=== PATIENT | male | born 1950 | race Caucasian/White ===

== ENCOUNTER 2019-06-19 07:33 | Inpatient (IN) | payer MEDICARE ==
[~2019-06-19] VITALS: Ht 185.4 cm; Wt 110.5 kg
[~2019-06-19 07:33] MED LIST: ADAL40PE SQ; AEC81 PO; CALC-190 PO; FISH1CAP49 PO; FOLI1TAB15 PO; LOSA100T58 PO; METH2.5T6 PO; METO25TA6 PO; PRAV80TA21 PO; RIVA20TA PO
[2019-06-19] MEDS ORDERED: SODIUM CHLORIDE 0.9% 500ML 500 ML IV ONE ×4 (07:55→20:12)
[2019-06-19] MEDS ORDERED: FAMOTIDINE/PF 20 MG/2 ML VIAL IV ONE (07:55)
[2019-06-19] MEDS ORDERED: ONDANSETRON HCL 4 MG/2 ML VIAL ONE ×2 (07:55→18:34)
[2019-06-19 08:04] LABS: BASOPHILS % (AUTO) 0.3 % (0.0-5.0); EOSINOPHILS % (AUTO) 0.1 % (0.0-8.0); HEMATOCRIT 28.7 % (36-48); LYMPHOCYTES % (AUTO) 8.3 % (21.0-51.0); MEAN CORPUSCULAR HEMOGLOBIN 35.3 pg (27.0-33.0); MEAN CORPUSCULAR HGB CONC 33.4 g/dL (32.0-36.0); MEAN CORPUSCULAR VOLUME 105.5 fL (79-99); MONOCYTES % (AUTO) 11.6 % (3.0-13.0); PLATELET COUNT (AUTO) 182 K/uL (130-400); RED BLOOD CELL COUNT(AUTO) 2.72 MIL/uL (4.00-5.50); WHITE BLOOD COUNT (AUTO) 15.5 K/uL (4.8-10.8)
[2019-06-19 08:12] LABS: POTASSIUM 5.2 mmol/L (3.5-5.1)
[2019-06-19 08:23] LABS: PARTIAL THROMBOPLASTIN TIME 27.3 SEC (26.3-35.5)
[2019-06-19 08:31] LABS: INR 1.49 (0.85-1.15); PROTHROMBIN TIME 15.4 SEC (9.6-11.6)
[2019-06-19 08:37] LABS: ALBUMIN 2.6 g/dL (3.5-5.0); BILIRUBIN,TOTAL 1.3 mg/dL (0.2-1.0); TOTAL PROTEIN, SERUM 7.1 g/dL (6.0-8.3)
[2019-06-19 09:44] LABS: APPEARANCE,URINE Clear (CLEAR); BILIRUBIN,URINE Negative (NEGATIVE); COLOR,URINE Yellow (YELLOW); GLUCOSE, URINE (UA) TRACE mg/dL (NEGATIVE); KETONES,URINE Trace mg/dL (NEGATIVE); LEUKOCYTE ESTERASE ,URINE Negative (NEGATIVE); NITRATE,URINE Negative (NEGATIVE); OCCULT BLOOD,URINE Negative (NEGATIVE); PROTEIN,URINE Negative (NEGATIVE)
[2019-06-19 10:00] LABS: BACTERIA,URINE None Seen /HPF (None Seen); RBC,URINE 0-1 /HPF (0-1); SQUAMOUS EPITHELIAL CELL,UR Rare /HPF (0-2); WBC,URINE 0-1 /HPF (0-1)
[2019-06-19] MEDS: SODIUM CHLORIDE 0.9% 1000ML 1,000 ML IV SCH ×2 (10:39→18:35)
[2019-06-19] MEDS ORDERED: LACTULOSE 20 GM/30 ML UDCUP PO PRN (10:45)
[2019-06-19] MEDS ORDERED: ONDANSETRON HCL 4 MG/2 ML VIAL IV PRN (10:45)
[2019-06-19] MEDS ORDERED: GUAIFENESIN-DM 200/20 MG 10 ML PO PRN (10:45)
[2019-06-19] MEDS ORDERED: HYDRALAZINE HCL 20 MG/ML VIAL IV PRN (10:45)
[2019-06-19] MEDS ORDERED: ACETAMINOPHEN 325 MG TAB PO PRN (10:45)
[2019-06-19] MEDS ORDERED: NITROGLYCERIN 0.4 MG SL TAB SL PRN (10:45)
[2019-06-19 11:41] LABS: AMPHET/METH SCREEN,URINE NEGATIVE (NEGATIVE); BARBITURATE SCREEN, URINE NEGATIVE (NEGATIVE); BENZODIAZEPINES SCREEN,URINE NEGATIVE (NEGATIVE); CANNABINOID SCREEN,URINE NEGATIVE (NEGATIVE); COCAINE SCREEN,URINE NEGATIVE (NEGATIVE); OPIATE SCREEN,URINE NEGATIVE (NEGATIVE); PHENCYCLIDINE SCREEN,URINE NEGATIVE (NEGATIVE)
[2019-06-19 16:12] LABS: MEAN CORPUSCULAR HGB CONC 33.5 g/dL (32.0-36.0); MEAN CORPUSCULAR VOLUME 104.6 fL (79-99); RED BLOOD CELL COUNT(AUTO) 1.97 MIL/uL (4.50-6.20)
[2019-06-19 16:19] LABS: PLATELET COUNT (AUTO) 149 K/uL (130-400); RED CELL DISTRIBUTION WIDTH 14.1 % (11.0-15.5); WHITE BLOOD COUNT (AUTO) 10.6 K/uL (4.8-10.8)
[2019-06-19 16:22] LABS: HEMATOCRIT 20.6 % (42-54)
[2019-06-19 16:47] LABS: CREATININE 1.1 mg/dL (0.5-1.5); POTASSIUM 4.9 mmol/L (3.5-5.1)
[2019-06-19] MEDS ORDERED: SODIUM CHLORIDE 0.9% 1000ML 1,000 ML IV ONE (16:51)
[2019-06-19] MEDS ORDERED: PANTOPRAZOLE 40 MG/VIAL IV SCH (17:15)
[2019-06-19] MEDS ORDERED: OCTREOTIDE ACETATE 1,250 MCG in SODIUM CHLORIDE 0.9% 250 ML IV SCH (17:15)
[2019-06-19] MEDS ORDERED: ONDANSETRON HCL 4 MG/2 ML VIAL IVP PRN (17:15)
[2019-06-19] MEDS ORDERED: OCTREOTIDE ACETATE 100 MCG/ML AMP IV SCH (17:15)
[2019-06-19] MEDS ORDERED: PANTOPRAZOLE SODIUM 80 MG in SODIUM CHLORIDE 0.9% 100 ML IV SCH (17:15)
[2019-06-19] MEDS ORDERED: ERYTHROMYCIN LACTOBIONATE 250 MG in SODIUM CHLORIDE 0.9% 100 ML IV ONE (17:15)
[2019-06-19] MEDS ORDERED: HUMAN PROTHROMBIN COMPLX(PCC) 500 UNIT KIT IV ONE (17:20)
[2019-06-19] MEDS ORDERED: HUMAN PROTHROMBIN COMPLX(PCC) 500 UNIT KIT IV SCH ×2 (17:30)
[2019-06-19] MEDS ORDERED: SODIUM CHLORIDE 0.9% 100 ML IV ONE (17:53)
[2019-06-19] MEDS ORDERED: OCTREOTIDE ACETATE 100 MCG/ML AMP ONE (18:00)
[2019-06-19] MEDS ORDERED: OCTREOTIDE ACETATE 200 MCG/ML 5 ML VIAL ONE (18:01)
[2019-06-19] MEDS: FAMOTIDINE 20MG TAB 20 MG TAB PO SCH (21:00)
[2019-06-20] VITALS (28 sets, daily range): BP systolic 85–136; BP diastolic 34–102
[2019-06-20] MEDS ORDERED: FEXO-59 PO (00:25)
[2019-06-20] MEDS ORDERED: IBUP-2784 PO (00:25)
[2019-06-20] MEDS ORDERED: FLUT16H NS (00:25)
[2019-06-20] MEDS ORDERED: AMLO5TAB9 PO (00:25)
[2019-06-20] MEDS ORDERED: SPIR25TA6 PO (00:25)
[2019-06-20] MEDS ORDERED: ATOR10 PO (00:25)
[2019-06-20] MEDS ORDERED: METO50TA18 PO (00:25)
[2019-06-20] MEDS ORDERED: ADAL40PE5 SQ (00:37)
[2019-06-20 04:22] LABS: BASOPHILS % (AUTO) 0.2 % (0.0-5.0); HEMATOCRIT 21.4 % (42-54); LYMPHOCYTES % (AUTO) 11.3 % (21.0-51.0); MEAN CORPUSCULAR HEMOGLOBIN 32.4 pg (27.0-33.0); MEAN CORPUSCULAR HGB CONC 33.6 g/dL (32.0-36.0); MEAN CORPUSCULAR VOLUME 96.4 fL (79-99); MONOCYTES % (AUTO) 13.5 % (3.0-13.0); NEUTROPHILS % (AUTO) 74.1 % (40.0-77.0); PLATELET COUNT (AUTO) 102 K/uL (130-400); RED BLOOD CELL COUNT(AUTO) 2.22 MIL/uL (4.50-6.20); RED CELL DISTRIBUTION WIDTH 17.7 % (11.0-15.5); WHITE BLOOD COUNT (AUTO) 12.9 K/uL (4.8-10.8)
[2019-06-20 04:34] LABS: % IRON SATURATION 89.6 % (30-44)
[2019-06-20 04:54] LABS: ALBUMIN 1.7 g/dL (3.5-5.0); BILIRUBIN,TOTAL 1.2 mg/dL (0.2-1.0); CREATININE 0.9 mg/dL (0.5-1.5); TOTAL PROTEIN, SERUM 4.6 g/dL (6.0-8.3)
[2019-06-20] MEDS: SODIUM CHLORIDE 0.9% 1000ML 1,000 ML IV SCH (05:53)
[2019-06-20 07:02] LABS: HEMATOCRIT 23.5 % (42-54)
[2019-06-20] MEDS ORDERED: ENOXAPARIN SODIUM 30 MG/0.3 ML SQ SCH (09:00)
--- NOTE | 2019-06-20 10:55 | NUR ---
Nutrition Intervention: Nutrition consult per protocol. Pt. on Clear Liquid diet. Pt. reports was not allowed to have Clear Liquid diet this morning possibly due to scheduled procedure. Pt. scheduled for EGD. Labs reviewed(Alb 1.7, T. Bili 1.2, BUN 29). LBM: 06/20/2019. SR-21, elastic. Recommendations: 1) When medically feasible, rec. advance diet as tolerated to Heart Healthy GI Soft [place]. 2) Continue to monitor pt's nutritional status and diet advancement. 3) Consult RD as nutrition concerns arise. Addendum: 06/20/19 at [address] Amended: Links added.
[2019-06-20] MEDS ORDERED: CALCIUM CHLORIDE 100 MG/ML 10 ML SYG IVP SCH (11:45)
[2019-06-20] MEDS: CEFTRIAXONE SODIUM 500 MG VIAL IV SCH (12:36)
[2019-06-20 14:55] LABS: HEMATOCRIT 22.3 % (42-54); MEAN CORPUSCULAR HEMOGLOBIN 33.2 pg (27.0-33.0); MEAN CORPUSCULAR HGB CONC 34.5 g/dL (32.0-36.0); MEAN CORPUSCULAR VOLUME 96.1 fL (79-99); PLATELET COUNT (AUTO) 130 K/uL (130-400); RED BLOOD CELL COUNT(AUTO) 2.32 MIL/uL (4.50-6.20); RED CELL DISTRIBUTION WIDTH 18.2 % (11.0-15.5); WHITE BLOOD COUNT (AUTO) 12.9 K/uL (4.8-10.8)
[2019-06-20 14:57] LABS: POTASSIUM 4.2 mmol/L (3.5-5.1)
[2019-06-20] MEDS ORDERED: PROPOFOL 10 MG/ML 20ML VIAL IV ONE (15:39)
[2019-06-20 15:42] LABS: INR 1.19 (0.85-1.15); PARTIAL THROMBOPLASTIN TIME 21.4 SEC (26.3-35.5); PROTHROMBIN TIME 12.4 SEC (9.6-11.6)
[2019-06-20] MEDS: FAMOTIDINE 20MG TAB 20 MG TAB PO SCH ×2 (18:03→20:45)
--- NOTE | 2019-06-20 18:25 | NUR ---
ARNAUD PLAN PATIENT DOWN FOR PROCEDURE. KARIN WILL CONTINUE TO FOLLOW. Addendum: 06/20/19 at 1826 by MEGHANA KAY RN CM Amended: Links added.
[2019-06-20 22:07] LABS: HEMATOCRIT 20.3 % (42-54)
[2019-06-21] VITALS (14 sets, daily range): BP systolic 87–135; BP diastolic 38–74
[2019-06-21 06:38] LABS: BASOPHILS % (AUTO) 0.5 % (0.0-5.0); EOSINOPHILS % (AUTO) 0.9 % (0.0-8.0); HEMATOCRIT 26.6 % (42-54); LYMPHOCYTES % (AUTO) 17.2 % (21.0-51.0); MEAN CORPUSCULAR HEMOGLOBIN 32.5 pg (27.0-33.0); MEAN CORPUSCULAR HGB CONC 33.8 g/dL (32.0-36.0); MONOCYTES % (AUTO) 13.8 % (3.0-13.0); NEUTROPHILS % (AUTO) 65.8 % (40.0-77.0); PLATELET COUNT (AUTO) 127 K/uL (130-400); RED BLOOD CELL COUNT(AUTO) 2.77 MIL/uL (4.50-6.20); RED CELL DISTRIBUTION WIDTH 18.3 % (11.0-15.5); WHITE BLOOD COUNT (AUTO) 10.5 K/uL (4.8-10.8)
[2019-06-21 07:11] LABS: ALBUMIN 2.4 g/dL (3.5-5.0); BILIRUBIN,TOTAL 1.8 mg/dL (0.2-1.0); CREATININE 1.1 mg/dL (0.5-1.5); POTASSIUM 4.1 mmol/L (3.5-5.1)
[2019-06-21] MEDS: PANTOPRAZOLE SODIUM 40 MG TABLET.DR PO SCH ×2 (08:39→21:21)
[2019-06-21] MEDS: CEFTRIAXONE SODIUM 500 MG VIAL IV SCH (08:39)
--- NOTE | 2019-06-21 12:53 | NUR ---
DC PLAN VISITED WITH PATIENT. PATIENT LIVES WITH SPOUSE. INDEPENDENT ABLE TO PERFORM ADL'S. PATIENT HAS NO SERVICES OR DME'S. FEELS SAFE TO RETURN HOME IF DIZZINESS IMPROVES. SAYS HE HAS NEIGHBORS AND FRIENDS THAT CAN HELP HIM AT HOME. BUT IS WORRIED BECAUSE HE LIVES ON [address]. LET NURSE KNOW TO ASK FOR PT EVAL FOR PATIENT. Addendum: 06/21/19 at 1255 by MEGHANA KAY RN CM Amended: Links added.
[2019-06-21 21:24] LABS: HEMATOCRIT 24.3 % (42-54)
[2019-06-22 04:06] VITALS: BP 103/52
[2019-06-22 04:22] LABS: BASOPHILS % (AUTO) 0.5 % (0.0-5.0); EOSINOPHILS % (AUTO) 1.8 % (0.0-8.0); HEMATOCRIT 23.9 % (42-54); MEAN CORPUSCULAR HEMOGLOBIN 32.3 pg (27.0-33.0); MEAN CORPUSCULAR HGB CONC 33.9 g/dL (32.0-36.0); MEAN CORPUSCULAR VOLUME 95.2 fL (79-99); MONOCYTES % (AUTO) 20.6 % (3.0-13.0); NEUTROPHILS % (AUTO) 59.4 % (40.0-77.0); PLATELET COUNT (AUTO) 105 K/uL (130-400); RED BLOOD CELL COUNT(AUTO) 2.51 MIL/uL (4.50-6.20); RED CELL DISTRIBUTION WIDTH 17.3 % (11.0-15.5); WHITE BLOOD COUNT (AUTO) 6.5 K/uL (4.8-10.8)
[2019-06-22 04:37] LABS: ALBUMIN 2.2 g/dL (3.5-5.0); BILIRUBIN,TOTAL 1.1 mg/dL (0.2-1.0); POTASSIUM 3.5 mmol/L (3.5-5.1); TOTAL PROTEIN, SERUM 5.8 g/dL (6.0-8.3)
[2019-06-22 07:30] VITALS: BP 110/56
[2019-06-22] MEDS ORDERED: PHARMACY COMMUNICATION MISC SCH (08:45)
[2019-06-22] MEDS: PANTOPRAZOLE SODIUM 40 MG TABLET.DR PO SCH ×2 (08:57→20:23)
[2019-06-22] MEDS ORDERED: CEFTRIAXONE SODIUM 1 GM IVP SCH (09:30)
[2019-06-22] MEDS ORDERED: CEFTRIAXONE SODIUM 500 MG VIAL IVP SCH (09:45)
[2019-06-22 11:00] VITALS: BP 108/52
--- NOTE | 2019-06-22 14:10 | NUR ---
PT REPORT WAS CALLED TO [facility] ON 4TH FLOOR AND PT WAS TRANSFERRED TO 4TH FLOOR BY WHEEL CHAIR.
--- NOTE | 2019-06-22 14:48 | NUR ---
RECEIVED REPORT FROM ICU PATIENT ARRIVALS ON UNIT VIA WHEELCHAIR HX OF FALL AT HOME AND IN ED, HOME MEDICATIONS ENTERED BUT ON HOLD PER PHYSICIAN.NKDA SL X3 , 2 ON LEFT ARM AND ONE ON THE RIGHT ARM. DENIES PAIN AT THIS TIME. K+ 3.5 AND REPLACEMENT GIVEN. PATIENT ON TELEMETRY V-PACE 78 LUNGS CLEAR ORIENTATED TO ROOM WILL CONTINUE TO MONITOR
[2019-06-22 16:35] VITALS: BP 129/65
[2019-06-22 18:09] VITALS: BP 126/66
[2019-06-22 22:29] LABS: HEMATOCRIT 26.7 % (42-54)
[2019-06-22 23:42] VITALS: BP 104/50
[2019-06-23 03:48] VITALS: BP 102/52
[2019-06-23 05:16] LABS: HEMATOCRIT 24.2 % (42-54)
[2019-06-23 08:05] VITALS: BP 104/52
[2019-06-23] MEDS ORDERED: CEFTRIAXONE SODIUM 1 GM IVP SCH (09:00)
[2019-06-23] MEDS: PANTOPRAZOLE SODIUM 40 MG TABLET.DR PO SCH (09:03)
[2019-06-23 10:55] VITALS: BP 129/79
--- NOTE | 2019-06-23 11:30 | NUR ---
NOTED SMALL AMOUNT OF BLOODY STOOL. DR. WILCOX MADE AWARE. NEW ORDER STAT H+H, NPO, START PROTONIX 40MG IV BID
[2019-06-23 12:05] LABS: HEMATOCRIT 25.9 % (42-54)
[2019-06-23] MEDS ORDERED: FLUTICASONE PROPIONATE 50MCG/SPRAY 16 GM BOTTLE NS PRN (15:15)
[2019-06-23 15:37] VITALS: BP 130/72
--- NOTE | 2019-06-23 16:45 | NUR ---
SPOKE WITH DR. CUEVAS MADE AWARE OF NEW CONSULT FOR AAA 5.2CM. DR. CUEVAS STATED HE WILL SPEAK TO DR. WILCOX REGARDING CONSULT
[2019-06-23] MEDS: SODIUM CHLORIDE 0.9% 1000ML 1,000 ML IV SCH (17:54)
[2019-06-23 19:53] VITALS: BP 130/75
[2019-06-23] MEDS: PANTOPRAZOLE 40 MG/VIAL IVP SCH (20:08)
[2019-06-23] MEDS: ATORVASTATIN CALCIUM 20 MG TABLET PO SCH (20:09)
[2019-06-23] MEDS: METOPROLOL TARTRATE 25 MG TAB PO SCH (20:09)
[2019-06-23] MEDS ORDERED: METOPROLOL TARTRATE 50 MG TAB PO SCH (21:00)
[2019-06-23 21:34] LABS: HEMATOCRIT 24.4 % (42-54)
[2019-06-23 23:52] VITALS: BP 119/57
[2019-06-24 03:56] VITALS: BP 108/68
[2019-06-24 05:57] LABS: BASOPHILS % (AUTO) 0.4 % (0.0-5.0); EOSINOPHILS % (AUTO) 2.4 % (0.0-8.0); HEMATOCRIT 25.6 % (42-54); LYMPHOCYTES % (AUTO) 20.4 % (21.0-51.0); MEAN CORPUSCULAR HEMOGLOBIN 32.6 pg (27.0-33.0); MEAN CORPUSCULAR HGB CONC 33.2 g/dL (32.0-36.0); MEAN CORPUSCULAR VOLUME 98.1 fL (79-99); MONOCYTES % (AUTO) 23.3 % (3.0-13.0); NEUTROPHILS % (AUTO) 51.5 % (40.0-77.0); PLATELET COUNT (AUTO) 126 K/uL (130-400); RED BLOOD CELL COUNT(AUTO) 2.61 MIL/uL (4.50-6.20); RED CELL DISTRIBUTION WIDTH 17.6 % (11.0-15.5); WHITE BLOOD COUNT (AUTO) 5.1 K/uL (4.8-10.8)
[2019-06-24 06:31] LABS: ALBUMIN 2.3 g/dL (3.5-5.0); CREATININE 0.8 mg/dL (0.5-1.5); POTASSIUM 3.5 mmol/L (3.5-5.1); TOTAL PROTEIN, SERUM 6.2 g/dL (6.0-8.3)
[2019-06-24 08:27] VITALS: BP 126/72
[2019-06-24] MEDS: CETIRIZINE HCL 5 MG TABLET PO SCH (08:40)
[2019-06-24] MEDS: METOPROLOL TARTRATE 25 MG TAB PO SCH ×2 (08:42→21:31)
[2019-06-24] MEDS ORDERED: SPIRONOLACTONE 25 MG TAB PO SCH (09:00)
[2019-06-24] MEDS ORDERED: LOSARTAN 100 MG TABLET PO SCH (09:00)
[2019-06-24] MEDS ORDERED: AMLODIPINE BESYLATE 2.5 MG TAB PO SCH (09:00)
[2019-06-24 12:02] VITALS: BP 115/71
[2019-06-24] MEDS ORDERED: CHLORDIAZEPOXIDE HCL 25 MG CAP PO PRN (12:15)
[2019-06-24] MEDS ORDERED: PHARMACY COMMUNICATION MISC PRN (12:15)
[2019-06-24] MEDS ORDERED: LORAZEPAM 2 MG/ML 1 ML VIAL IVP PRN (12:15)
[2019-06-24] MEDS: PANTOPRAZOLE 40 MG/VIAL IVP SCH ×2 (12:46→21:31)
[2019-06-24] MEDS: SODIUM CHLORIDE 0.9% 1000ML 1,000 ML IV SCH (12:46)
--- NOTE | 2019-06-24 13:15 | NUR ---
SPOKE TO NAYELI FROM DR. OROZCO'S OFFICE REGARDING PATIENT EXPERIENCING BLOODY STOOLS. PER NAYELI, DR. OROZCO ALREADY LEFT THE OFFICE TO MAKE AROUNDS AT THE HOSPITAL. CALLED CELL PHONE, NO ANSWER AT THIS TIME.
--- NOTE | 2019-06-24 13:40 | NUR ---
MD ROUNDS DR. BARLOW ROUNDED, OKAY TO DISCHARGE AND WILL SIGN OFF TODAY FROM PULMONARY STAND POINT.
--- NOTE | 2019-06-24 14:35 | NUR ---
PAGED DR. CUEVAS TO COMFIRM IF NO FURTHER PROCEDURES NEEDED, NO ANSWER AT THIS TIME.
--- NOTE | 2019-06-24 15:58 | NUR ---
RD FOLLOW UP NOTE Pt on Full Liquid at time of visit. Pt requesting solid foods prior to colostomy;Recommend to follow MD recommendations. Pt unaware of fatty liver;RD to hold off on Liver Nutrition education. Pt denies need for nutrition education for any other medical history. RD to continue to monitor. Please notify RD as additional nutrition concerns arise. Thank you. Addendum: 06/24/19 at [address] Amended: Links added.
--- NOTE | 2019-06-24 16:13 | NUR ---
GI PAGED PAGED DR. OROZCO REGARDING PATIENT EXPERIENCING BLOODY STOOLS, MESSAGE LEFT. NO ANSWER AT THIS TIME.
[2019-06-24 16:51] VITALS: BP 143/81
[2019-06-24 20:00] VITALS: BP 133/81
[2019-06-24] MEDS: ATORVASTATIN CALCIUM 20 MG TABLET PO SCH (21:31)
--- NOTE | 2019-06-24 22:00 | NUR ---
DR. ERNESTO ECHAVARRIA, NOTIFIED OF PT'S REPORTED BLOODY STOOL STATED PT TO HAVE COLONOSCOPY ON MONDAY ORDERS CPEO TO FOLLOW
[2019-06-25] VITALS (7 sets, daily range): BP systolic 100–147; BP diastolic 58–85
[2019-06-25 04:00] LABS: BASOPHILS % (AUTO) 0.4 % (0.0-5.0); EOSINOPHILS % (AUTO) 2.9 % (0.0-8.0); HEMATOCRIT 24.9 % (42-54); LYMPHOCYTES % (AUTO) 29.3 % (21.0-51.0); MEAN CORPUSCULAR HEMOGLOBIN 32.3 pg (27.0-33.0); MEAN CORPUSCULAR HGB CONC 33.3 g/dL (32.0-36.0); MEAN CORPUSCULAR VOLUME 96.9 fL (79-99); MONOCYTES % (AUTO) 25.2 % (3.0-13.0); NEUTROPHILS % (AUTO) 40.3 % (40.0-77.0); PLATELET COUNT (AUTO) 137 K/uL (130-400); RED BLOOD CELL COUNT(AUTO) 2.57 MIL/uL (4.50-6.20); RED CELL DISTRIBUTION WIDTH 17.6 % (11.0-15.5); WHITE BLOOD COUNT (AUTO) 4.8 K/uL (4.8-10.8)
[2019-06-25 04:15] LABS: ALBUMIN 2.4 g/dL (3.5-5.0); CREATININE 0.9 mg/dL (0.5-1.5); POTASSIUM 3.7 mmol/L (3.5-5.1); TOTAL PROTEIN, SERUM 6.3 g/dL (6.0-8.3)
[2019-06-25] MEDS: LACTULOSE 20 GM/30 ML UDCUP PO SCH ×4 (06:53→13:39)
[2019-06-25] MEDS: SODIUM CHLORIDE 0.9% 1000ML 1,000 ML IV SCH (07:00)
--- NOTE | 2019-06-25 07:30 | NUR ---
note AWAKE AND ALERT. NO N/V NO DISTRESS OR SOB. BBS CLEAR TO ALL LOBES. HE CAME IN AFTER FALL AT HOME. REPORTS, WHILE IN ER, HE SUFFERED ANOTHER FALL. WAS FOUND TO BE ANEMIC. WAS GIVEN BLOOD TRANSFUSIONS AND XARELTO HAS BEEN ON HOLD SINCE LAST MONDAY. STOOL WAS POSITIVE FOR HEMOCULT AND HE UNDERWENT EGD NO ACTIVE BLEED FOUND AND STARTED BLEEDING IN THE STOOL ONCE AGAIN SO GI WAS RECONSULTED AND HE IS GETTING PREPPED FOR COLONOSCOPY TOMORROW. INCIDENTAL FINDING OF ABDOMINAL ANEURYSM >5CM. THERE HAS BEEN FAILED ATTEMPTS TO CONSULT CARDIOLOGY. WILL CONSULT THE ONCALL THIS AM.
[2019-06-25] MEDS: PANTOPRAZOLE 40 MG/VIAL IVP SCH ×2 (09:36→19:50)
[2019-06-25] MEDS: METOPROLOL TARTRATE 25 MG TAB PO SCH ×2 (09:36→19:50)
[2019-06-25] MEDS: CETIRIZINE HCL 5 MG TABLET PO SCH (09:36)
--- NOTE | 2019-06-25 13:43 | NUR ---
SPOKE TO MARY MATIAS ABOUT CONSULT FOR ANEURYSM. HE SAID PATIENT WILL NEED WORK UP DONE OUTPATIENT. WILL WRITE ORDER FOR FOLLOW UP IN ONE WEEK AFTER [facility]GE.
[2019-06-25] MEDS ORDERED: MAGNESIUM CITRATE 296 ML SOLUTION PO ONE ×2 (14:00→17:00)
[2019-06-25] MEDS ORDERED: IOHEXOL 350 MG/ML 100ML INFUS..BTL IV ONE (15:04)
[2019-06-25] MEDS ORDERED: PEG 3350/NA SULF,BICARB,CL/KCL 4000 ML SOLN PO ONE (16:00)
[2019-06-25] MEDS ORDERED: PEG 3350/NA SULF,BICARB,CL/KCL 4000 ML SOLN PO SCH (17:30)
[2019-06-25] MEDS: BISACODYL 5 MG TABLET.DR PO SCH ×2 (19:50→23:52)
[2019-06-25] MEDS: ATORVASTATIN CALCIUM 20 MG TABLET PO SCH (19:50)
[2019-06-26] VITALS (19 sets, daily range): BP systolic 103–142; BP diastolic 43–92
[2019-06-26] MEDS: SODIUM CHLORIDE 0.9% 1000ML 1,000 ML IV SCH ×2 (03:30→21:17)
[2019-06-26 05:04] LABS: BASOPHILS % (AUTO) 0.5 % (0.0-5.0); EOSINOPHILS % (AUTO) 1.8 % (0.0-8.0); LYMPHOCYTES % (AUTO) 27.9 % (21.0-51.0); MEAN CORPUSCULAR HEMOGLOBIN 31.4 pg (27.0-33.0); NEUTROPHILS % (AUTO) 42.4 % (40.0-77.0); PLATELET COUNT (AUTO) 151 K/uL (130-400); RED BLOOD CELL COUNT(AUTO) 2.55 MIL/uL (4.50-6.20); RED CELL DISTRIBUTION WIDTH 17.3 % (11.0-15.5); WHITE BLOOD COUNT (AUTO) 4.4 K/uL (4.8-10.8)
[2019-06-26 05:27] LABS: ALBUMIN 2.4 g/dL (3.5-5.0); CREATININE 0.8 mg/dL (0.5-1.5); POTASSIUM 3.3 mmol/L (3.5-5.1); TOTAL PROTEIN, SERUM 6.4 g/dL (6.0-8.3)
[2019-06-26] MEDS: CETIRIZINE HCL 5 MG TABLET PO SCH (09:00)
[2019-06-26] MEDS: BISACODYL 5 MG TABLET.DR PO SCH ×2 (09:00→19:25)
[2019-06-26] MEDS: METOPROLOL TARTRATE 25 MG TAB PO SCH ×2 (09:00→21:13)
--- NOTE | 2019-06-26 12:57 | NUR ---
EMMAEK TO PATIENT ABOUT DIET AND NUTRITION. STATES COOKS ALL HIS MEALS HIMSELF, HAS A DRINKING PROBLEM NOT A DIET PROBLEM- ADVISED THAT MAY NEED TO INCREASE NUTRIENTS TO COMPENSATE FOR PAST HABIES, WILL ORDER A DIET CONSULT Addendum: 06/26/19 at 1259 by JOSÉ LUIS GREGORIO RN CM Amended: Links added.
[2019-06-26] MEDS ORDERED: MIDAZOLAM HCL 1 MG/ML 2ML VIAL ONE (17:03)
[2019-06-26] MEDS ORDERED: FENTANYL CITRATE PF 50 MCG/1 ML 2ML VIAL ONE (17:04)
[2019-06-26] MEDS: PANTOPRAZOLE 40 MG/VIAL IVP SCH (21:13)
[2019-06-26] MEDS: ATORVASTATIN CALCIUM 20 MG TABLET PO SCH (21:13)
[2019-06-27 03:00] VITALS: BP 112/72
[2019-06-27 07:51] LABS: BASOPHILS % (AUTO) 0.4 % (0.0-5.0); EOSINOPHILS % (AUTO) 1.7 % (0.0-8.0); HEMATOCRIT 27.2 % (42-54); LYMPHOCYTES % (AUTO) 15.5 % (21.0-51.0); MEAN CORPUSCULAR HEMOGLOBIN 32.4 pg (27.0-33.0); MEAN CORPUSCULAR HGB CONC 32.7 g/dL (32.0-36.0); MEAN CORPUSCULAR VOLUME 98.9 fL (79-99); MONOCYTES % (AUTO) 17.9 % (3.0-13.0); NEUTROPHILS % (AUTO) 63.7 % (40.0-77.0); PLATELET COUNT (AUTO) 171 K/uL (130-400); RED BLOOD CELL COUNT(AUTO) 2.75 MIL/uL (4.50-6.20); RED CELL DISTRIBUTION WIDTH 17.4 % (11.0-15.5); WHITE BLOOD COUNT (AUTO) 5.2 K/uL (4.8-10.8)
[2019-06-27 08:07] VITALS: BP 125/73
[2019-06-27] MEDS: BISACODYL 5 MG TABLET.DR PO SCH (09:00)
[2019-06-27] MEDS: CETIRIZINE HCL 5 MG TABLET PO SCH (09:08)
[2019-06-27] MEDS: METOPROLOL TARTRATE 25 MG TAB PO SCH (09:08)
[2019-06-27] MEDS: PANTOPRAZOLE 40 MG/VIAL IVP SCH (09:08)
[2019-06-27] MEDS ORDERED: METO25 PO (12:16)
[2019-06-27] MEDS ORDERED: PANT40TA25 PO (12:16)
--- NOTE | 2019-06-27 13:30 | NUR ---
DISCHARGE PATIENT GIVEN DISCHARGE INSTRUCTION AND EDUCATION ON FOLLOW UP APPOINTMENTS AND NEW PRESCRIBED MEDICATION. PATIENT VERBALIZED UNDERSTANDING OF ALL EDUCATION GIVEN VIA TEACH BACK. IV DISCONTINUED, CATHETER INTACT. NO DISTRESS NOTED UPON DISCHARGE. ALL BELONGINGS TAKEN WITH..
--- NOTE | 2019-06-27 13:50 | NUR ---
NUTRITION EDUCATION COMPLETED RD PROVIDED VITAMIN/ MINERAL SUPPLEMENTATION AND CIRRHOSIS DIET AND NUTRITION EDUCATION DUE TO PT HAVING HX OF ALCOHOLISM. PT VERBALIZED UNDERSTANDING. ALL QUESTIONS WERE ANSWERED. RD RECOMMENDED PT TO TAKE A B-COMPLEX SUPPLEMENT DAILY AND ADVISED PT TO STOP DRINKING, PT AGREED. EDUCATION MATERIALS WERE PROVIDED IN [place] FOR HOME. Addendum: 06/27/19 at [address] Amended: Links added.
== END 2019-06-27 13:00 | disposition home or self-care (01) | DRG 368 ==
LOC: EDH 07:33 → EDHIP 10:39 → EDSEX 10:39 → 2CH 23:45 → 4BH 06-22 14:48
PROVIDERS: ADMIT Family Medicine; ATTEND Family Medicine
PROC: 30233N1 Transfusion of Nonautologous Red Blood Cells into Peripheral Vein, Percutaneous Approach (ICD-10-PCS; principal; 2019-06-19)
PROC: 0DJ08ZZ Inspection of Upper Intestinal Tract, Via Natural or Artificial Opening Endoscopic (ICD-10-PCS; 2019-06-20)
PROC: 0DBP8ZZ Excision of Rectum, Via Natural or Artificial Opening Endoscopic (ICD-10-PCS; 2019-06-26)
DX: K22.6 Gastro-esophageal laceration-hemorrhage syndrome (principal); R57.1 Hypovolemic shock; M62.82 Rhabdomyolysis; D62 Acute posthemorrhagic anemia; D68.69 Other thrombophilia; K29.01 Acute gastritis with bleeding; K57.31 Diverticulosis of large intestine without perforation or abscess with bleeding; D72.829 Elevated white blood cell count, unspecified; I95.1 Orthostatic hypotension; I48.91 Unspecified atrial fibrillation; M06.9 Rheumatoid arthritis, unspecified; E66.9 Obesity, unspecified; E78.5 Hyperlipidemia, unspecified; E83.51 Hypocalcemia; F10.10 Alcohol abuse, uncomplicated; I10 Essential (primary) hypertension; I25.10 Atherosclerotic heart disease of native coronary artery without angina pectoris; K70.30 Alcoholic cirrhosis of liver without ascites; K76.0 Fatty (change of) liver, not elsewhere classified; M19.90 Unspecified osteoarthritis, unspecified site; Z96.641 Presence of right artificial hip joint; W18.30XA Fall on same level, unspecified, initial encounter; D69.6 Thrombocytopenia, unspecified; I71.4 Abdominal aortic aneurysm, without rupture; Y90.9 Presence of alcohol in blood, level not specified; K62.1 Rectal polyp; Z80.0 Family history of malignant neoplasm of digestive organs; Z82.0 Family history of epilepsy and other diseases of the nervous system; Z82.3 Family history of stroke; Z82.49 Family history of ischemic heart disease and other diseases of the circulatory system; Z82.5 Family history of asthma and other chronic lower respiratory diseases; R55 Syncope and collapse; Z83.3 Family history of diabetes mellitus; Z87.891 Personal history of nicotine dependence; Z95.0 Presence of cardiac pacemaker; Y93.89 Activity, other specified; Y99.8 Other external cause status; Y92.009 Unspecified place in unspecified non-institutional (private) residence as the place of occurrence of the external cause; Z68.32 Body mass index [BMI] 32.0-32.9, adult
CPT/HCPCS: 36415; 36430; 43235; 45385; 70450; 71045; 72170; 74174; 74176; 76700; 80048; 80053; 80305; 81001; 82270; 82550; 82948; 83540; 83550; 83605; 83735; 84145; 84484; 85014; 85018; 85025; 85027; 85610; 85730; 86677; 86850; 86900; 86901; 86922; 88305; 93005; 93880; 97039; A4606; C9113; G0378; J0696; J1364; J2250; J2354; J2405; J2704; J3010; J3490; J7030; J7040; P9016; Q9967

== ENCOUNTER 2019-08-27 06:27 | Day surgery (SDC) | payer MEDICARE ==
[2019-08-27] VITALS (10 sets, daily range): BP systolic 135–175; BP diastolic 81–102
[~2019-08-27] VITALS: Ht 182.9 cm; Wt 108.5 kg
[~2019-08-27 06:27] MED LIST changes: -ADAL40PE SQ; +ADAL40PE5 SQ; +ATOR10 PO; +CALC-1038 PO; -CALC-190 PO; +FEXO-59 PO; +FLUT16H NS; +IRON PO; -LOSA100T58 PO; -METO25TA6 PO; +METO50TA18 PO; -PRAV80TA21 PO; -RIVA20TA PO; +VITAMIN E PO
[2019-08-27 07:04] LABS: BASOPHILS % (AUTO) 0.6 % (0.0-5.0); EOSINOPHILS % (AUTO) 1.9 % (0.0-8.0); HEMATOCRIT 43.5 % (42-54); LYMPHOCYTES % (AUTO) 28.4 % (21.0-51.0); MEAN CORPUSCULAR HEMOGLOBIN 33.5 pg (27.0-33.0); MEAN CORPUSCULAR HGB CONC 32.9 g/dL (32.0-36.0); MEAN CORPUSCULAR VOLUME 101.9 fL (79-99); MONOCYTES % (AUTO) 15.6 % (3.0-13.0); NEUTROPHILS % (AUTO) 53.2 % (40.0-77.0); PLATELET COUNT (AUTO) 152 K/uL (130-400); RED BLOOD CELL COUNT(AUTO) 4.27 MIL/uL (4.50-6.20); WHITE BLOOD COUNT (AUTO) 6.7 K/uL (4.8-10.8)
[2019-08-27 07:11] LABS: APPEARANCE,URINE CLEAR (CLEAR); BILIRUBIN,URINE NEGATIVE (NEGATIVE); COLOR,URINE YELLOW (YELLOW); GLUCOSE, URINE (UA) NEGATIVE (NEGATIVE); KETONES,URINE NEGATIVE (NEGATIVE); LEUKOCYTE ESTERASE ,URINE NEGATIVE (NEGATIVE); NITRATE,URINE NEGATIVE (NEGATIVE); OCCULT BLOOD,URINE NEGATIVE (NEGATIVE); PROTEIN,URINE NEGATIVE (NEGATIVE); UROBILINOGEN,URINE 0.2 mg/dL (0.2-1.0)
[2019-08-27 07:14] LABS: CREATININE 1.1 mg/dL (0.5-1.5); POTASSIUM 4.8 mmol/L (3.5-5.1)
[2019-08-27 07:39] LABS: INR 1.01 (0.85-1.15); PROTHROMBIN TIME 10.9 SEC (9.6-11.6)
[2019-08-27] MEDS ORDERED: SODIUM BICARB 50MEQ 50ML VIAL ONE (08:37)
[2019-08-27] MEDS ORDERED: LIDOCAINE HCL 2% 20ML ONE (08:38)
[2019-08-27] MEDS ORDERED: NITROGLYCERIN 2 MG/VIAL VIAL IV ONE (08:38)
[2019-08-27] MEDS ORDERED: HEPARIN SODIUM 1000UNIT/ML 10ML VIAL ONE ×2 (08:38→09:09)
[2019-08-27] MEDS ORDERED: IOHEXOL 350 MG/ML 100ML INFUS..BTL IV ONE (08:38)
[2019-08-27] MEDS ORDERED: MEPERIDINE-PF 25 MG/ML SYG ONE ×2 (08:38→09:16)
[2019-08-27] MEDS ORDERED: MIDAZOLAM HCL 1 MG/ML 2ML VIAL ONE ×2 (08:38→09:16)
[2019-08-27] MEDS ORDERED: NICARDIPINE HCL 25 MG/10 ML ML IV ONE (08:47)
[2019-08-27] MEDS ORDERED: SODIUM CHLORIDE 0.9% 1000ML 1,000 ML IV ONE (09:05)
[2019-08-27] MEDS ORDERED: SODIUM CHLORIDE 0.9% 1000ML 1,000 ML IV SCH (10:06)
--- NOTE | 2019-08-27 14:00 | NUR ---
REPORT RECEIVED FROM EM العلي RN. PT RECEIVED SUPINE ON BED, COMFORTABLE, NOT IN ANY APPARENT DISTRESS, CATH SITE SOFT, NO OOZING NO HEMATOMA NOTED. WILL CONTINUE TO MONITOR PT.
--- NOTE | 2019-08-27 15:00 | NUR ---
DISCHARGE PT DISCHARGED VIA WHEELCHAIR WITH FRIEND. OT STABLE. NO COMPLAINTS MADE. CATH SITE TO RIGHT GROIN REMAINS SOFT, DRESSING DRY AND INTACT, NO OOZING NO HEMATOMA NOTED. DISCHARGE INSTRUCTIONS GIVEN TO PT, PT ALERT, VERBALIZED UNDERSTANDING. Addendum: 08/27/19 at 1522 by SUE MCKENZIE RN RN ADDENDUM: PT VOIDED PRIOR TO DISCHARGE, LARGE AMOUNT
[2019-10-01] MEDS ORDERED: FERR-82 PO (14:23)
[2019-10-01] MEDS ORDERED: OLOP2.5D6 OP (14:27)
== END 2019-08-27 15:00 | disposition home or self-care (01) ==
LOC: DAH 06:27
PROVIDERS: ATTEND Internal Medicine Cardiovascular Disease
DX: I73.9 Peripheral vascular disease, unspecified (principal); I71.4 Abdominal aortic aneurysm, without rupture; I25.119 Atherosclerotic heart disease of native coronary artery with unspecified angina pectoris; I10 Essential (primary) hypertension; I48.20 Chronic atrial fibrillation, unspecified; I77.4 Celiac artery compression syndrome; Z79.01 Long term (current) use of anticoagulants; Z79.82 Long term (current) use of aspirin; Z79.899 Other long term (current) drug therapy; E78.5 Hyperlipidemia, unspecified
CPT/HCPCS: 36245 ×2; 36251; 36415; 75726 ×2; 80048; 81003; 85025; 85610; 85730; 93005; 93458; A4215; A4216; A4221; A4222; A4223 ×3; A4606; A4663; C1760; C1769; C1887; C1894; J1644 ×2; J2175; J2250; J3490 ×4; J7030; Q9965 ×2; Q9967; 99156; 99157

== ENCOUNTER → 2019-09-12 | Outpatient (CLI) | payer MEDICARE | END | disposition home or self-care (01) | LOC: SHCH 11:28 | PROVIDERS: ATTEND Internal Medicine Cardiovascular Disease | DX: R01.1 Cardiac murmur, unspecified (principal) | CPT/HCPCS: 93306 ==

== ENCOUNTER 2019-10-02 05:31 | Inpatient (IN) | payer MEDICARE ==
[2019-10-01 11:35] LABS: BASOPHILS % (AUTO) 0.5 % (0.0-5.0); EOSINOPHILS % (AUTO) 0.8 % (0.0-8.0); HEMATOCRIT 42.7 % (42-54); LYMPHOCYTES % (AUTO) 19.5 % (21.0-51.0); MEAN CORPUSCULAR HEMOGLOBIN 33.3 pg (27.0-33.0); MEAN CORPUSCULAR HGB CONC 33.5 g/dL (32.0-36.0); MEAN CORPUSCULAR VOLUME 99.5 fL (79-99); MONOCYTES % (AUTO) 14.1 % (3.0-13.0); NEUTROPHILS % (AUTO) 64.7 % (40.0-77.0); PLATELET COUNT (AUTO) 156 K/uL (130-400); RED BLOOD CELL COUNT(AUTO) 4.29 MIL/uL (4.50-6.20); RED CELL DISTRIBUTION WIDTH 14.7 % (11.0-15.5)
[2019-10-01 11:40] LABS: APPEARANCE,URINE Clear (CLEAR); BILIRUBIN,URINE Negative (NEGATIVE); COLOR,URINE Yellow (YELLOW); GLUCOSE, URINE (UA) Negative (NEGATIVE); KETONES,URINE Negative (NEGATIVE); LEUKOCYTE ESTERASE ,URINE Negative (NEGATIVE); NITRATE,URINE Negative (NEGATIVE); OCCULT BLOOD,URINE Negative (NEGATIVE); PROTEIN,URINE Negative (NEGATIVE); UROBILINOGEN,URINE 0.2 mg/dL (0.2-1.0)
[2019-10-01 11:54] LABS: INR 1.03 (0.85-1.15); PARTIAL THROMBOPLASTIN TIME 25.5 SEC (26.3-35.5); PROTHROMBIN TIME 11.1 SEC (9.6-11.6)
[2019-10-01 12:06] LABS: POTASSIUM 4.5 mmol/L (3.5-5.1)
[2019-10-01 13:49] VITALS: BP 161/99
--- NOTE | 2019-10-01 16:41 | NUR ---
RE: ABNORMAL CHEST XRAY INFORMED CLARICE ALFARO REGARING ABNORMAL CHEST XRAY RESULTS. NO NEW ORDERS RECEIVED, MAY PROCEED WITH SCHEDULED PROCEDURE.
[~2019-10-02] VITALS: Ht 182.9 cm; Wt 111.8 kg
[2019-10-02] VITALS (40 sets, daily range): BP systolic 0–159; BP diastolic 0–99
[~2019-10-02 05:31] MED LIST changes: +FERR-82 PO; -IRON PO; +OLOP2.5D6 OP
[2019-10-02] MEDS ORDERED: ASCO500T20 PO (06:41)
[2019-10-02] MEDS ORDERED: SODIUM CHLORIDE 0.9% 1000ML 1,000 ML IV ONE (06:42)
[2019-10-02] MEDS ORDERED: HEPARIN SODIUM 1000UNIT/ML 10ML VIAL ONE (06:54)
[2019-10-02] MEDS ORDERED: IODIXANOL 320 MG/ML 100 ML VIAL ONE (06:54)
[2019-10-02] MEDS ORDERED: CEFAZOLIN SODIUM 1 GM VIAL ONE (06:54)
[2019-10-02] MEDS ORDERED: DEXAMETHASONE SOD PHOSPHATE 10MG/ML 1ML VIAL ONE (07:03)
[2019-10-02] MEDS ORDERED: MIDAZOLAM HCL 1 MG/ML 2ML VIAL ONE (07:03)
[2019-10-02] MEDS ORDERED: LIDOCAINE PF 2% 5ML ABBOJECT ONE ×2 (07:03→07:04)
[2019-10-02] MEDS ORDERED: FENTANYL CITRATE PF 50 MCG/1 ML 2ML VIAL ONE ×3 (07:04→10:37)
[2019-10-02] MEDS ORDERED: GLYCOPYRROLATE 1 MG/5 ML SYRINGE ONE (07:04)
[2019-10-02] MEDS ORDERED: ROCURONIUM 10MG/1ML SYR 10 MG/ML ML ONE (07:04)
[2019-10-02] MEDS ORDERED: PROPOFOL 10 MG/ML 20ML VIAL IV ONE (07:04)
[2019-10-02] MEDS ORDERED: NEOSTIGMINE 5MG/5ML SYR IV ONE (07:04)
[2019-10-02] MEDS ORDERED: PHENYLEPHRINE HCL 10 MG/ML 1ML VIAL IV ONE (07:05)
[2019-10-02] MEDS ORDERED: ATROPINE SULFATE 0.1 MG/ML 10 ML SYG IVP ONE (07:05)
[2019-10-02] MEDS ORDERED: ROCURONIUM BROMIDE 10MG/1ML 5ML VL ONE (08:40)
[2019-10-02] MEDS ORDERED: ALBUMIN (HUMAN) 5% 250 ML IV ONE (08:59)
[2019-10-02 09:19] LABS: ABG BASE EXCESS -4.5 mmol/L (-2.0-3.0); ABG HCO3 21.8 mmol/L (21.0-28.0); ABG OXYGEN SATURATION 98.2 % (95.0-99.0); ABG PCO2 45 mmHg (35-48)
[2019-10-02] MEDS ORDERED: SODIUM BICARB 50MEQ 50ML VIAL ONE (09:28)
[2019-10-02 09:54] LABS: ABG BASE EXCESS -2.3 mmol/L (-2.0-3.0); ABG HCO3 24.4 mmol/L (21.0-28.0); ABG OXYGEN SATURATION 98.7 % (95.0-99.0); ABG PCO2 50 mmHg (35-48)
[2019-10-02 10:36] LABS: ABG BASE EXCESS -1.8 mmol/L (-2.0-3.0); ABG OXYGEN SATURATION 98.5 % (95.0-99.0); ABG PCO2 51 mmHg (35-48)
[2019-10-02] MEDS ORDERED: NITROGLYCERIN 50 MG/D5% WATER 250 BOT IV SCH (11:30)
[2019-10-02] MEDS ORDERED: FLUTICASONE PROPIONATE 50MCG/SPRAY 16 GM BOTTLE NS PRN (11:30)
[2019-10-02] MEDS ORDERED: HYDRALAZINE HCL 20 MG/ML VIAL IV PRN (11:30)
[2019-10-02] MEDS ORDERED: SODIUM CHLORIDE 0.9% 1000ML 1,000 ML IV SCH (11:30)
[2019-10-02] MEDS ORDERED: LIDOCAINE HCL MPF 1% 5ML VIAL ONE (11:32)
[2019-10-02] MEDS ORDERED: ONDANSETRON HCL 4 MG/2 ML VIAL ONE (12:08)
[2019-10-02] MEDS ORDERED: NOREPINEPHRINE 4MG/NS 250ML 250 ML IV ONE (12:38)
[2019-10-02 12:52] LABS: HEMATOCRIT 31.2 % (42-54)
[2019-10-02] MEDS ORDERED: NOREPINEPHRINE 4MG/NS 250ML 250 ML IV SCH (13:00)
[2019-10-02 13:03] LABS: CREATININE 1.7 mg/dL (0.5-1.5)
[2019-10-02 13:17] LABS: INR 1.22 (0.85-1.15); PROTHROMBIN TIME 13.1 SEC (9.6-11.6)
[2019-10-02 13:19] LABS: PARTIAL THROMBOPLASTIN TIME > 120.0 SEC (26.3-35.5)
--- NOTE | 2019-10-02 13:30 | NUR ---
HYPOTENSION PATIENT'S ART LINE AND CUFF READING SBP OF 40S, PATIENT REMAINS ALERT AND ORIENTED, TALKING TO NURSING STAFF AT BEDSIDE. DR. ALMEIDA MADE AWARE OF ACUTE ISSUE. HE GAVE ORDERS FOR STAT LABS AND STAT US ABDOMEN AND LEVOPHED NEEDED. DR. PIÑA NOTIFIED AT 1250. HE GAVE ORDERS FOR US OF BILATERAL GROINS AND 1GM CALCIUM INFUSION. US ABDOMEN AND BILATERAL GROINS DONE AT 1255 LABS RESULTED AND ELLE AND DR. PIÑA MADE AWARE. DR. ALMEIDA ORDERED 1 UNIT OF PRBC TO BE GIVEN. PATIENT REMAINED ALERT AND TALKING THE ENTIRE TIME, BP RESPONDED WITH LEVOPHED QUICKLY, AND WAS TITRATED OFF WITHIN 30 MIN OF STARTING TRANSFUSION. MDs AWARE. Addendum: 10/02/19 at 1818 by KRIS VERGARA RN BILATERAL GROINS ARE SOFT TO TOUCH, NO HEMATOMA PRESENT.
[2019-10-02] MEDS ORDERED: CALCIUM GLUCONATE 1 GM/10 ML VIAL IV SCH (14:00)
[2019-10-02] MEDS ORDERED: SODIUM CHLORIDE 0.9% 500ML 500 ML IV ONE (14:01)
[2019-10-02] MEDS: FISH OIL 1000 MG/CAP PO SCH (14:26)
[2019-10-02] MEDS: FERROUS SULFATE 325 MG TABLET.DR PO SCH ×2 (14:27→17:53)
[2019-10-02] MEDS: CEFAZOLIN SODIUM 1 GM VIAL IVP SCH (15:28)
[2019-10-02] MEDS ORDERED: CALCIUM GLUCONATE 1 GM in SODIUM CHLORIDE 0.9% 100 ML IV SCH (15:30)
--- NOTE | 2019-10-02 17:15 | NUR ---
BLOOD TRANSFUSION BLOOD TRANSFUSION BEGAN AT 1410. TRANSFUSION ENDED AT 171.
--- NOTE | 2019-10-02 17:15 | NUR ---
HYPOTENSION DR. ALMEIDA MADE AWARE OF RECURRENT HYPOTENSION, SBP 60s. HE WAS NOTIFIED THAT PATIENT WAS COMPLAINING OF NAUSEA AT THIS TIME, HE DID DURING EARLIER EPISODE. PATIENT REMAINED ALERT AND ORIENTED. DR. ALMEIDA ORDERED ZOFRAN 4MG TO BE GIVEN IV PRN Q6HR. LEVOPHED WAS STARTED AT THIS TIME, TITRATED OFF AFTER 10MIN OF INFUSION, BP STABILIZED.
[2019-10-02] MEDS ORDERED: ONDANSETRON HCL 4 MG/2 ML VIAL IVP PRN (18:00)
[2019-10-02 18:31] LABS: HEMATOCRIT 31.3 % (42-54)
[2019-10-02] MEDS ORDERED: METOPROLOL TARTRATE 50 MG TAB PO SCH (21:00)
[2019-10-02] MEDS: ATORVASTATIN CALCIUM 10 MG TABLET PO SCH (21:15)
[2019-10-02] MEDS: ASCORBIC ACID 500 MG TAB PO SCH (21:15)
[2019-10-03] VITALS (8 sets, daily range): BP systolic 114–153; BP diastolic 60–90
[2019-10-03 00:45] LABS: HEMATOCRIT 29.5 % (42-54)
[2019-10-03] MEDS: CEFAZOLIN SODIUM 1 GM VIAL IVP SCH (01:16)
[2019-10-03 06:09] LABS: POTASSIUM 3.8 mmol/L (3.5-5.1)
[2019-10-03 06:59] LABS: HEMATOCRIT 28.4 % (42-54); MEAN CORPUSCULAR HEMOGLOBIN 32.8 pg (27.0-33.0); MEAN CORPUSCULAR HGB CONC 35.2 g/dL (32.0-36.0); MEAN CORPUSCULAR VOLUME 93.1 fL (79-99); RED BLOOD CELL COUNT(AUTO) 3.05 MIL/uL (4.50-6.20); RED CELL DISTRIBUTION WIDTH 17.4 % (11.0-15.5); WHITE BLOOD COUNT (AUTO) 11.5 K/uL (4.8-10.8)
--- NOTE | 2019-10-03 07:30 | NUR ---
DR. PIÑA HERE AND SPOKE TO PATIENT CONCERNING THE PROCEDURES THAT HAD BEEN DONE DURING THE ENDOLUMINAL FROM THE DAY BEFORE. CAMPOS ONEIL HERE AND ASSESSED PT AND ADVISED PATIENT THAT HE MAY BE ABLE TO GO HOME LATER TODAY AND ONLY IF HE WAS STABLE TO GO HOME WILL CONTINUE TO MONITOR THE V/S AND ACTIVITY TOLERANCE.
[2019-10-03] MEDS ORDERED: ADALIMUMAB 40 MG SQ SCH (09:00)
[2019-10-03] MEDS ORDERED: FEXOFENADINE HCL 180 MG PO SCH (09:00)
[2019-10-03] MEDS ORDERED: OLOPATADINE HCL OP SCH (09:00)
--- NOTE | 2019-10-03 10:20 | NUR ---
SPOKE WITH PATIENT CONCERNING POSSIBLE DISCHARGE THIS AFTERNOON AND PATIENT STATES THAT HE DOESN'T FEEL VERY STABLE WITH HIS WALKING AND VISION APPEARS TO BE HAZY. DR. PIÑA HAD MENTIONED THAT IT WOULD BE WEIR TO STAY OVERNIGHT AND SENT HOME TOMORROW AND WILL NOTIFY CAMPOS VEE THAT PT IS CONSIDERING STAYING ONE MORE NIGHT IN HOSPITAL.
[2019-10-03] MEDS: ASPIRIN 81 MG EC TAB PO SCH (10:25)
[2019-10-03] MEDS: FOLIC ACID 1 MG TABLET PO SCH (10:25)
[2019-10-03] MEDS: FERROUS SULFATE 325 MG TABLET.DR PO SCH ×2 (10:26→21:00)
[2019-10-03] MEDS: METOPROLOL TARTRATE 25 MG TAB PO SCH ×2 (10:26→20:57)
[2019-10-03] MEDS: FISH OIL 1000 MG/CAP PO SCH (10:26)
--- NOTE | 2019-10-03 11:23 | NUR ---
TALKED TO DUARTE ONEIL AND ADVISED ABOUT THE PATIENT WANTING TO FEEL BETTER PRIOR TO GOING HOME AND ORDER TO TRANSFER PT TO [facility].
--- NOTE | 2019-10-03 16:00 | NUR ---
PT HAS VOIDED IN THE BATHROOM AND UNABLE TO MEASURE. PT IS COMFORTABLE AND OFFERING NO COMPLAINTS.
--- NOTE | 2019-10-03 16:22 | NUR ---
DC Plan States and lives alone, but has neighbors close by and multiple friends who are willing and able to assist if needed. Friend Nicole Astorga to provide transportation. Denies any HH, DME, or provider services. Independently performs ADLs[place] so [place] stairs to climb. States feels safe to return home and is ready to dc home tomorrow. Denied having any concerns or questions. CM assisted patient into recliner and propped up patient's foot rest as instructed by patient. CD Addendum: 10/03/19 at 1626 by BRITTANI REINOSO CM Amended: Links added.
--- NOTE | 2019-10-03 18:07 | NUR ---
PT HAS BEEN RESTING COMFORTABLY AND OFFERING NO COMPLAINTS. VS HAVE REMAINED STABLE.
[2019-10-03] MEDS: ASCORBIC ACID 500 MG TAB PO SCH (20:57)
[2019-10-03] MEDS: ATORVASTATIN CALCIUM 10 MG TABLET PO SCH (20:57)
[2019-10-04 03:55] VITALS: BP 104/51
[2019-10-04 04:01] LABS: BASOPHILS % (AUTO) 0.1 % (0.0-5.0); EOSINOPHILS % (AUTO) 0.1 % (0.0-8.0); HEMATOCRIT 26.8 % (42-54); LYMPHOCYTES % (AUTO) 12.8 % (21.0-51.0); MEAN CORPUSCULAR HEMOGLOBIN 32.1 pg (27.0-33.0); MEAN CORPUSCULAR HGB CONC 34.7 g/dL (32.0-36.0); MEAN CORPUSCULAR VOLUME 92.4 fL (79-99); MONOCYTES % (AUTO) 18.6 % (3.0-13.0); NEUTROPHILS % (AUTO) 68.1 % (40.0-77.0); PLATELET COUNT (AUTO) 76 K/uL (130-400); RED CELL DISTRIBUTION WIDTH 16.8 % (11.0-15.5); WHITE BLOOD COUNT (AUTO) 9.4 K/uL (4.8-10.8)
[2019-10-04 04:14] LABS: CREATININE 0.8 mg/dL (0.5-1.5); MAGNESIUM 1.8 mg/dL (1.80-2.40); PHOSPHORUS 2.6 mg/dL (2.5-4.9); POTASSIUM 3.6 mmol/L (3.5-5.1)
[2019-10-04 07:20] VITALS: BP 119/65
--- NOTE | 2019-10-04 07:30 | NUR ---
DR. ALMEIDA HERE AND ASSESSED PATIENT AND ORDERS NOTED. WILL DISCUSS WITH ELEMENTARY TEACHER ABOUT PT GOING HOME WITH HOME HEALTH.
[2019-10-04] MEDS: FISH OIL 1000 MG/CAP PO SCH (09:19)
[2019-10-04] MEDS: METOPROLOL TARTRATE 25 MG TAB PO SCH (09:19)
[2019-10-04] MEDS: ASPIRIN 81 MG EC TAB PO SCH (09:19)
[2019-10-04] MEDS: ASCORBIC ACID 500 MG TAB PO SCH (09:19)
[2019-10-04] MEDS: FERROUS SULFATE 325 MG TABLET.DR PO SCH (09:19)
[2019-10-04] MEDS: FOLIC ACID 1 MG TABLET PO SCH (09:19)
[2019-10-04 11:11] VITALS: BP 115/67
[2019-10-04] MEDS ORDERED: METO25 PO (11:45)
--- NOTE | 2019-10-04 12:53 | NUR ---
DC PLAN VISITED WITH PATIENT AFTER NEXT PT JIMMY SAID HE FEELS BETTER. MIGHT HAVE BEEN OVER WHELMED WITH THOUGHT OF GOING HOME BUT NOW FEELS BETTER. SAID HE DID NOT SAY HOME HEALTH. TOLD HIM LET ME GET YOU SOME HELP AT HOME. GAVE HIM INFO ON PRIVATE CAREGIVERS AND THEIRS NUMBERS. SAID NOT INTERESTED IF HE HAS TO PAY. WILL BE OKAY WITH FRIENDS. LOOKING FOWARD TO WORKING WITH PT AGAIN THIS AFTERNOON AND DOING SOME STAIRS. Addendum: 10/04/19 at 1255 by MEGHANA KAY RN CM Amended: Links added.
--- NOTE | 2019-10-04 13:25 | NUR ---
PT IS TAKING SHOWER AND WAITING FOR PHYSICAL THERAPIST TO HELP WITH HIS STAIR CLIMBING AND THEN BE DISCHARGED. PT HAS DECIDED THAT HE WILL BE GOING HOME AND NO NEED FOR HOME HEALTH.
--- NOTE | 2019-10-04 15:40 | NUR ---
PT WAS DISCHARGED AND HAD LONG DISCUSSION OF CHANGE OF MED DOSAGE FOR LOPRESSOR. PT APPEARS TO UNDERSTAND THE INSTRUCTIONS AND APPOINTMENTS.
[2019-10-05] MEDS ORDERED: METHOTREXATE SODIUM 2.5 MG TABLET PO SCH (09:00)
== END 2019-10-04 16:00 | disposition home or self-care (01) | DRG 270 ==
LOC: DAHIP 05:31 → EDSTATUS 09:00 → 2BH 11:37
PROVIDERS: ADMIT Internal Medicine; ATTEND Internal Medicine
PROC: 04CL0ZZ Extirpation of Matter from Left Femoral Artery, Open Approach (ICD-10-PCS; 2019-10-02)
PROC: 04UL0KZ Supplement Left Femoral Artery with Nonautologous Tissue Substitute, Open Approach (ICD-10-PCS; 2019-10-02)
PROC: B4101ZZ Fluoroscopy of Abdominal Aorta using Low Osmolar Contrast (ICD-10-PCS; 2019-10-02)
PROC: B4141ZZ Fluoroscopy of Superior Mesenteric Artery using Low Osmolar Contrast (ICD-10-PCS; 2019-10-02)
PROC: 30233N1 Transfusion of Nonautologous Red Blood Cells into Peripheral Vein, Percutaneous Approach (ICD-10-PCS; 2019-10-02)
PROC: 04V00EZ Restriction of Abdominal Aorta with Branched or Fenestrated Intraluminal Device, One or Two Arteries, Open Approach (ICD-10-PCS; principal; 2019-10-02 07:00)
PROC: 047534Z Dilation of Superior Mesenteric Artery with Drug-eluting Intraluminal Device, Percutaneous Approach (ICD-10-PCS; 2019-10-02 07:00)
DX: I71.4 Abdominal aortic aneurysm, without rupture (principal); T81.19XA Other postprocedural shock, initial encounter; D62 Acute posthemorrhagic anemia; I50.22 Chronic systolic (congestive) heart failure; I48.20 Chronic atrial fibrillation, unspecified; I97.618 Postprocedural hemorrhage of a circulatory system organ or structure following other circulatory system procedure; I49.5 Sick sinus syndrome; E78.00 Pure hypercholesterolemia, unspecified; E78.5 Hyperlipidemia, unspecified; I11.0 Hypertensive heart disease with heart failure; Y83.8 Other surgical procedures as the cause of abnormal reaction of the patient, or of later complication, without mention of misadventure at the time of the procedure; I25.10 Atherosclerotic heart disease of native coronary artery without angina pectoris; S70.12XA Contusion of left thigh, initial encounter; Y93.89 Activity, other specified; Y99.8 Other external cause status; Y92.89 Other specified places as the place of occurrence of the external cause; Z95.0 Presence of cardiac pacemaker; Z79.82 Long term (current) use of aspirin; Z79.899 Other long term (current) drug therapy; Z86.79 Personal history of other diseases of the circulatory system; Z79.01 Long term (current) use of anticoagulants
CPT/HCPCS: 34705; 34713; 34812; 36245; 36415; 36430; 37236; 71045; 75726; 76700; 76882; 80048; 81003; 82435; 82803; 82947; 83605; 83735; 84100; 84132; 84295; 85014; 85018; 85025; 85027; 85347; 85610; 85730; 86850; 86900; 86901; 86922; 87635; 93005; 97039; A4344; A4606; C1725; C1760; C1769; C1887; C1894; G0378; J0461; J0610; J0690; J1100; J1644; J2001; J2250; J2370; J2405; J2704; J2710; J3010; J3490; J7030; J7040; P9016; P9045; Q9967

== ENCOUNTER 2020-03-20 05:54 | Day surgery (SDC) | payer BC, MEDICARE ==
[2020-03-18 12:08] LABS: BASOPHILS % (AUTO) 0.8 % (0.0-5.0); EOSINOPHILS % (AUTO) 1.5 % (0.0-8.0); HEMATOCRIT 37.2 % (42-54); MEAN CORPUSCULAR HEMOGLOBIN 34.5 pg (27.0-33.0); MEAN CORPUSCULAR HGB CONC 33.6 g/dL (32.0-36.0); MEAN CORPUSCULAR VOLUME 102.8 fL (79-99); MONOCYTES % (AUTO) 15.9 % (3.0-13.0); PLATELET COUNT (AUTO) 166 K/uL (130-400); RED BLOOD CELL COUNT(AUTO) 3.62 MIL/uL (4.50-6.20); RED CELL DISTRIBUTION WIDTH 13.9 % (11.0-15.5); WHITE BLOOD COUNT (AUTO) 7.9 K/uL (4.8-10.8)
[2020-03-18 12:14] LABS: POTASSIUM 4.3 mmol/L (3.5-5.1)
[2020-03-18 12:20] LABS: INR 1.16 (0.85-1.15); PROTHROMBIN TIME 12.5 SEC (9.6-11.6)
[~2020-03-20] VITALS: Ht 182.9 cm; Wt 104.3 kg
[2020-03-20] VITALS (12 sets, daily range): BP systolic 100–119; BP diastolic 65–74
[~2020-03-20 05:54] MED LIST changes: -AEC81 PO; +AMLO-257 PO; -CALC-1038 PO; -FERR-82 PO; -FEXO-59 PO; +FEXO180T94 PO; +IRON PO; +LOSA100T58 PO; +METO100T14 PO; -METO50TA18 PO; +MV-M1TAB20 PO; +OMEP-420 PO; +RIVA20TA PO; +SODIUM CHLORIDE 0.9% 1000ML 1,000 ML IV SCH; +VITA-164 PO; -VITAMIN E PO
[2020-03-20] MEDS ORDERED: CEFAZOLIN SODIUM 1 GM VIAL IVP SCH ×2 (06:00→18:00)
[2020-03-20] MEDS ORDERED: ASCO500C18 PO (07:05)
[2020-03-20] MEDS ORDERED: MIDAZOLAM HCL 1 MG/ML 2ML VIAL ONE ×8 (07:17→12:12)
[2020-03-20] MEDS ORDERED: CEFAZOLIN SODIUM 1 GM VIAL ONE ×2 (07:17→11:31)
[2020-03-20] MEDS ORDERED: MEPERIDINE-PF 25 MG/ML SYG ONE ×8 (07:17→12:12)
[2020-03-20] MEDS ORDERED: BUPIVACAINE/PF 0.25% 30ML VIAL IJ ONE (07:17)
[2020-03-20] MEDS ORDERED: LIDOCAINE HCL 1% MDV 50ML VIAL ONE (07:17)
--- NOTE | 2020-03-20 07:23 | NUR ---
PATIENT TRANSFERRED TO [facility] VIA BED BY CHARY LARKIN RN
[2020-03-20] MEDS ORDERED: IODIXANOL 320 MG/ML 100 ML VIAL ONE ×2 (07:38→09:48)
[2020-03-20] MEDS ORDERED: SODIUM BICARB 50MEQ 50ML VIAL 0 ML ONE (09:54)
[2020-03-20] MEDS ORDERED: LIDOCAINE HCL 2% 20ML ONE (09:54)
[2020-03-20] MEDS ORDERED: THROMBIN-JMI 5000 UNIT/VIAL TP ONE (12:33)
[2020-03-20] MEDS ORDERED: ONDANSETRON HCL 4 MG/2 ML VIAL IV PRN (13:15)
[2020-03-20] MEDS ORDERED: SODIUM CHLORIDE 0.9% 1000ML 1,000 ML IV SCH (13:15)
[2020-03-20] MEDS ORDERED: ACETAMINOPHEN-CODEINE 300/30MG TAB PO PRN (13:15)
[2020-03-20] MEDS ORDERED: ACETAMINOPHEN 325 MG TAB PO PRN (13:15)
--- NOTE | 2020-03-20 13:35 | NUR ---
PATIENT RETURNED FROM [facility] VIA BED BY CHARY LARKIN RN. PATIENT AAOX3, DROWSY. PATIENT DENIES ANY PAIN AT THIS TIME. PRESSURE DRESSING TO LEFT UPPER CHEST WALL IS DRY/INTACT, NO BLEEDING/NO HEMATOMA NOTED. DRESSING TO RIGHT GROIN DRY/INTACT. NO BLEEDING/NO HEMATOMA NOTED. AREA SOFT/NONTENDER.
--- NOTE | 2020-03-20 14:35 | NUR ---
HANDOFF COMMUNICATION REPORT GIVEN TO PATRICK العلي RN AT BEDSIDE USING SBAR. DRESSING TO LEFT UPPER CHEST DRY/INTACT, DRESSING TO RIGHT GROIN DRY/INTACT, AREA SOFT/NONTENDER.
--- NOTE | 2020-03-20 18:45 | NUR ---
report called [facility] with dr de leon and informed of cxr results. ok to proceed with dismissal.
--- NOTE | 2020-03-20 20:00 | NUR ---
discharge instructions given via phone to friend mr faustin. friend voiced understanding. pt taken out via w/c by donavon martínez rn. pt free from bleeding or hematoma to rt groin and left upper chest wall. pt has sling to left arm.
== END 2020-03-20 20:00 | disposition home or self-care (01) ==
LOC: DAH 05:54
PROVIDERS: ATTEND Internal Medicine Cardiovascular Disease
DX: I44.2 Atrioventricular block, complete (principal); I49.5 Sick sinus syndrome; I42.9 Cardiomyopathy, unspecified; I48.19 Other persistent atrial fibrillation; I11.0 Hypertensive heart disease with heart failure; I50.40 Unspecified combined systolic (congestive) and diastolic (congestive) heart failure; E78.5 Hyperlipidemia, unspecified; Z79.01 Long term (current) use of anticoagulants; Z79.899 Other long term (current) drug therapy; Z98.890 Other specified postprocedural states
CPT/HCPCS: 33225; 33229; 36415; 71045; 80048; 85025; 85610; 85730; 93005; A4215; A4216; A4221; A4222; A4223 ×3; A4606; A4663; C1730 ×2; C1760; C1769 ×4; C1887; C1894 ×3; C1900; C2621; J0690 ×3; J1644 ×2; J2175 ×8; J2250 ×8; J3490 ×3; J7030; Q9967 ×2; 96360; 96361; 96374; 99156; 99157

== ENCOUNTER → 2020-05-21 | Outpatient (CLI) | payer BC ==
[~2020-05-21] MED LIST changes: +ASCO500C18 PO; -MV-M1TAB20 PO; -SODIUM CHLORIDE 0.9% 1000ML 1,000 ML IV SCH
== END | disposition home or self-care (01) ==
LOC: SHCH 10:19
PROVIDERS: ATTEND Internal Medicine Cardiovascular Disease
DX: I51.7 Cardiomegaly (principal); R55 Syncope and collapse; R10.31 Right lower quadrant pain
CPT/HCPCS: 93306; 93356

== ENCOUNTER 2021-03-20 09:54 | Observation (INO) | payer BC ==
[~2021-03-20] VITALS: Ht 182.9 cm; Wt 99.8 kg
[~2021-03-20 09:54] MED LIST changes: +OLOP2.5D16 OP; -OLOP2.5D6 OP
[2021-03-20 10:37] LABS: BASOPHILS % (AUTO) 0.6 % (0.0-5.0); EOSINOPHILS % (AUTO) 0.4 % (0.0-8.0); LYMPHOCYTES % (AUTO) 14.3 % (21.0-51.0); MEAN CORPUSCULAR HEMOGLOBIN 33.5 pg (27.0-33.0); MEAN CORPUSCULAR HGB CONC 33.3 g/dL (32.0-36.0); MEAN CORPUSCULAR VOLUME 100.6 fL (79-99); MONOCYTES % (AUTO) 14.3 % (3.0-13.0); PLATELET COUNT (AUTO) 125 K/uL (130-400); RED BLOOD CELL COUNT(AUTO) 3.58 MIL/uL (4.50-6.20); RED CELL DISTRIBUTION WIDTH 13.5 % (11.0-15.5); WHITE BLOOD COUNT (AUTO) 5.1 K/uL (4.8-10.8)
[2021-03-20 10:46] LABS: POTASSIUM 4.2 mmol/L (3.5-5.1)
[2021-03-20 10:47] LABS: INR 1.26 (0.85-1.15); PROTHROMBIN TIME 13.4 SEC (9.6-11.6)
[2021-03-20 10:48] LABS: PARTIAL THROMBOPLASTIN TIME 29.5 SEC (26.3-35.5)
[2021-03-20 10:50] LABS: ALBUMIN 3.1 g/dL (3.5-5.0); BILIRUBIN,TOTAL 0.6 mg/dL (0.2-1.0); MAGNESIUM 2.1 mg/dL (1.80-2.40); TOTAL PROTEIN, SERUM 7.9 g/dL (6.0-8.3)
[2021-03-20 11:37] LABS: APPEARANCE,URINE Clear (CLEAR); BILIRUBIN,URINE Negative (NEGATIVE); COLOR,URINE Yellow (YELLOW); GLUCOSE, URINE (UA) Negative (NEGATIVE); KETONES,URINE Negative (NEGATIVE); LEUKOCYTE ESTERASE ,URINE Negative (NEGATIVE); NITRATE,URINE Negative (NEGATIVE); OCCULT BLOOD,URINE Negative (NEGATIVE); PROTEIN,URINE Negative (NEGATIVE); UROBILINOGEN,URINE 0.2 mg/dL (0.2-1.0)
[2021-03-20 11:42] LABS: B-TYPE NATRIURETIC PEPTIDE 78 pg/mL (0-100)
[2021-03-20] MEDS ORDERED: IOHEXOL 350 MG/ML 100ML INFUS..BTL IV ONE (12:11)
[2021-03-20] MEDS ORDERED: ONDANSETRON 4MG INJ IV PRN (14:30)
[2021-03-20] MEDS ORDERED: ACETAMINOPHEN 325 MG TAB PO PRN (14:30)
[2021-03-20] MEDS ORDERED: DIPHENHYDRAMINE HCL 25 MG CAPSULE PO PRN (14:30)
[2021-03-20] MEDS ORDERED: ONDANSETRON 4MG INJ IVP PRN (19:30)
[2021-03-20 20:00] VITALS: BP 152/91
[2021-03-20] MEDS ORDERED: LOSA100T58 PO (20:36)
[2021-03-20 22:30] VITALS: BP_SYST 145; BP_SYST 150; BP_SYST 152; BP_DIAS 90; BP_DIAS 98; BP_DIAS 99
[2021-03-20] MEDS ORDERED: LOSARTAN 100 MG TABLET ONE (22:46)
[2021-03-20] MEDS ORDERED: ATORVASTATIN 20 MG TABLET ONE (22:46)
[2021-03-20] MEDS ORDERED: RIVAROXABAN 20 MG TABLET ONE (22:46)
[2021-03-20] MEDS ORDERED: ATORVASTATIN 10 MG TABLET ONE (22:48)
[2021-03-20 23:52] VITALS: BP 132/78
[2021-03-21 04:05] VITALS: BP 138/84
[2021-03-21 04:45] LABS: BASOPHILS % (AUTO) 0.7 % (0.0-5.0); EOSINOPHILS % (AUTO) 3.4 % (0.0-8.0); HEMATOCRIT 37.8 % (42-54); LYMPHOCYTES % (AUTO) 20.8 % (21.0-51.0); MEAN CORPUSCULAR HEMOGLOBIN 33.9 pg (27.0-33.0); MEAN CORPUSCULAR HGB CONC 34.1 g/dL (32.0-36.0); MEAN CORPUSCULAR VOLUME 99.2 fL (79-99); MONOCYTES % (AUTO) 17.2 % (3.0-13.0); NEUTROPHILS % (AUTO) 57.4 % (40.0-77.0); PLATELET COUNT (AUTO) 117 K/uL (130-400); RED BLOOD CELL COUNT(AUTO) 3.81 MIL/uL (4.50-6.20); RED CELL DISTRIBUTION WIDTH 13.6 % (11.0-15.5); WHITE BLOOD COUNT (AUTO) 4.4 K/uL (4.8-10.8)
[2021-03-21 05:07] LABS: ALBUMIN 2.9 g/dL (3.5-5.0); BILIRUBIN,TOTAL 0.8 mg/dL (0.2-1.0); CREATININE 0.8 mg/dL (0.5-1.5); TOTAL PROTEIN, SERUM 7.8 g/dL (6.0-8.3)
[2021-03-21 08:00] VITALS: BP 156/89
[2021-03-21] MEDS ORDERED: FERROUS SULFATE 325 MG TABLET.DR PO SCH (08:00)
[2021-03-21] MEDS ORDERED: ASCORBIC ACID 500 MG TAB PO SCH (08:00)
[2021-03-21] MEDS ORDERED: FISH OIL 1000 MG/CAP PO SCH (09:00)
[2021-03-21] MEDS ORDERED: ENOXAPARIN SODIUM 40 MG/0.4 ML SYRINGE SQ SCH (09:00)
[2021-03-21] MEDS ORDERED: FOLIC ACID 1 MG TABLET PO SCH (09:00)
[2021-03-21] MEDS ORDERED: PANTOPRAZOLE 40 MG TAB DR PO SCH (09:00)
[2021-03-21] MEDS ORDERED: VITAMIN E 400 UNIT CAPSULE PO SCH (09:00)
[2021-03-21] MEDS ORDERED: ***HM***(Fexofenadine HCl (Allegra Allergy) 180 MG) PO SCH (09:00)
[2021-03-21 12:06] VITALS: BP 148/94
[2021-03-21 13:22] LABS: RETICULOCYTE % (AUTO) 1.06 % (0.42-2.23)
[2021-03-21 13:39] LABS: % IRON SATURATION 35.7 % (30-44)
[2021-03-21 14:10] LABS: THYROID STIMULATING HORMONE 2.18 uIU/mL (0.36-3.74)
[2021-03-21] MEDS ORDERED: LOSARTAN 100 MG TABLET PO SCH (21:00)
[2021-03-21] MEDS ORDERED: ATORVASTATIN 10 MG TABLET PO SCH (21:00)
[2021-03-21] MEDS ORDERED: RIVAROXABAN 20 MG TABLET PO SCH (21:00)
== END 2021-03-21 16:10 | disposition home or self-care (01) ==
LOC: EDH 09:54 → EDHIP 14:19 → 4BH 17:31
PROVIDERS: ADMIT Internal Medicine; ATTEND Internal Medicine
DX: R55 Syncope and collapse (principal); Z20.822 Contact with and (suspected) exposure to COVID-19; R79.89 Other specified abnormal findings of blood chemistry; I48.20 Chronic atrial fibrillation, unspecified; I11.0 Hypertensive heart disease with heart failure; I50.22 Chronic systolic (congestive) heart failure; I25.119 Atherosclerotic heart disease of native coronary artery with unspecified angina pectoris; E78.5 Hyperlipidemia, unspecified; I71.4 Abdominal aortic aneurysm, without rupture; I49.5 Sick sinus syndrome; F12.90 Cannabis use, unspecified, uncomplicated; Z79.01 Long term (current) use of anticoagulants; Z79.899 Other long term (current) drug therapy; Z95.0 Presence of cardiac pacemaker; Z86.79 Personal history of other diseases of the circulatory system; Z87.19 Personal history of other diseases of the digestive system
CPT/HCPCS: 36415 ×2; 70450; 70496; 70498; 71045; 78582; 80053 ×2; 81003; 82550; 82607; 82746; 82948; 83540; 83550; 83605; 83735; 83880; 83921; 84443; 84484; 85025 ×2; 85045; 85378; 85610; 85730; 87635; 87804 ×2; 93005; 93970; 99285; A9540; A9558; C9803; G0378 ×26; Q9967

== ENCOUNTER 2022-03-12 06:19 | Emergency (ER) | payer OTHER, BC ==
[~2022-03-12] VITALS: Ht 185.4 cm; Wt 88.9 kg
[~2022-03-12 06:19] MED LIST changes: -AMLO-257 PO; -METO100T14 PO; -OLOP2.5D16 OP; -OMEP-420 PO; -VITA-164 PO; +VITA-348 PO
[2022-03-12 06:45] LABS: BASOPHILS % (AUTO) 0.2 % (0.0-5.0); EOSINOPHILS % (AUTO) 0.2 % (0.0-8.0); HEMATOCRIT 33.4 % (42-54); LYMPHOCYTES % (AUTO) 2.6 % (21.0-51.0); MEAN CORPUSCULAR HEMOGLOBIN 34.1 pg (27.0-33.0); MEAN CORPUSCULAR HGB CONC 34.7 g/dL (32.0-36.0); MEAN CORPUSCULAR VOLUME 98.2 fL (79-99); MONOCYTES % (AUTO) 9.9 % (3.0-13.0); NEUTROPHILS % (AUTO) 86.4 % (40.0-77.0); PLATELET COUNT (AUTO) 117 K/uL (130-400); WHITE BLOOD COUNT (AUTO) 19.7 K/uL (4.8-10.8)
[2022-03-12 07:02] LABS: ALBUMIN 2.8 g/dL (3.5-5.0); CREATININE 0.8 mg/dL (0.5-1.5); TOTAL PROTEIN, SERUM 7.3 g/dL (6.0-8.3)
[2022-03-12] MEDS ORDERED: 0.9%NACL 1000ML 1,000 ML IV ONE (08:00)
[2022-03-12 09:07] VITALS: BP 96/49
== END 2022-03-12 10:23 | disposition home or self-care (01) ==
LOC: EDH 06:19
DX: R55 Syncope and collapse (principal); E86.0 Dehydration; I48.91 Unspecified atrial fibrillation; I10 Essential (primary) hypertension; Z79.899 Other long term (current) drug therapy; Z98.890 Other specified postprocedural states; Z60.2 Problems related to living alone
CPT/HCPCS: 99284; 96360; 96361; 84484 ×2; 80053; 85025; 36415; 93005; J7030

== ENCOUNTER → 2022-05-05 | Outpatient (CLI) | payer BC ==
[~2022-05-05] MED LIST changes: +IOHEXOL 350 MG/ML 100ML INFUS..BTL IV ONE
== END | disposition home or self-care (01) ==
LOC: RAH 10:54
PROVIDERS: ATTEND Internal Medicine Cardiovascular Disease
DX: I71.30 Abdominal aortic aneurysm, ruptured, unspecified (principal); I74.09 Other arterial embolism and thrombosis of abdominal aorta; Z95.820 Peripheral vascular angioplasty status with implants and grafts; Z96.641 Presence of right artificial hip joint
CPT/HCPCS: 74174; Q9967